=== PATIENT | female | born 1945 | race Caucasian/White ===

== ENCOUNTER 2019-02-22 07:56 | Inpatient (IN) | payer MEDICARE ==
[~2019-02-22] VITALS: Ht 165.1 cm; Wt 79.4 kg
[2019-02-22] MEDS ORDERED: AMLO10TA8 PO (08:47)
[2019-02-22] MEDS ORDERED: POTA10TA6 PO (08:48)
[2019-02-22] MEDS ORDERED: FURO20TA3 PO (08:49)
[2019-02-22] MEDS ORDERED: DOXA2TAB9 PO (08:51)
[2019-02-22] MEDS ORDERED: APIX5TAB4 PO (08:51)
[2019-02-22 08:52] VITALS: BP 143/73
[2019-02-22] MEDS ORDERED: AMLO-150 PO (08:52)
[2019-02-22] MEDS ORDERED: SODIUM CHLORIDE 0.9% 1,000 ML IV SCH (08:55)
[2019-02-22 09:38] LABS: ANION GAP 8 mmol/L (5-15); CALCIUM 9.2 mg/dL (8.5-10.1); CHLORIDE 107 mmol/L (98-107); CREATININE 0.85 mg/dL (0.55-1.02)
[2019-02-22] MEDS ORDERED: ISOPROTERENOL 0.2MG/ML, 5ML ONE (09:48)
[2019-02-22] MEDS ORDERED: MIDAZOLAM 1 MG/ML, 2ML ONE ×2 (09:48→11:09)
[2019-02-22] MEDS ORDERED: LIDOCAINE 1%, 20ML ONE (09:48)
[2019-02-22] MEDS ORDERED: FENTANYL PF 100 MCG/2ML ONE ×2 (09:48→11:09)
[2019-02-22] MEDS ORDERED: MIDAZOLAM 1 MG/ML, 5ML ONE (11:13)
[2019-02-22] MEDS ORDERED: FENTANYL PF 250 MCG/5ML ONE (11:56)
[2019-02-22] MEDS ORDERED: ACETAMINOPHEN 325 MG TABLET PO PRN (12:00)
[2019-02-22] MEDS ORDERED: ZOLPIDEM 5MG TABLET PO PRN (12:00)
[2019-02-22 14:15] VITALS: BP 123/58
[2019-02-22] MEDS: APIXABAN 5 MG TABLET PO SCH ×2 (15:35→21:25)
[2019-02-22 19:14] VITALS: BP 116/67
[2019-02-22 21:24] VITALS: BP 127/73
[2019-02-22] MEDS: DOXAZOSIN 2MG TABLET PO SCH (21:25)
[2019-02-23 01:05] VITALS: BP 128/74
[2019-02-23 07:44] VITALS: BP 143/65
[2019-02-23] MEDS ORDERED: DOXAZOSIN 2MG TABLET PO SCH (09:00)
[2019-02-23] MEDS ORDERED: AMLODIPINE 5 MG TABLET PO SCH (09:00)
[2019-02-23] MEDS: APIXABAN 5 MG TABLET PO SCH ×2 (09:01→20:11)
[2019-02-23] MEDS: AMLODIPINE 10 MG TAB PO SCH (09:01)
[2019-02-23] MEDS: FUROSEMIDE 20 MG TABLET PO SCH (09:01)
[2019-02-23] MEDS: POTASSIUM CHLORIDE 10 MEQ TABLET.ER PO SCH (09:01)
[2019-02-23 14:00] VITALS: BP 137/72
[2019-02-23 18:55] VITALS: BP 148/71
[2019-02-23 20:10] VITALS: BP 132/69
[2019-02-23] MEDS: DOXAZOSIN 2MG TABLET PO SCH (20:10)
[2019-02-24 01:03] VITALS: BP 148/73
[2019-02-24] MEDS: APIXABAN 5 MG TABLET PO SCH ×2 (07:23→09:25)
[2019-02-24] MEDS: AMLODIPINE 10 MG TAB PO SCH (08:15)
[2019-02-24] MEDS: FUROSEMIDE 20 MG TABLET PO SCH (08:16)
[2019-02-24] MEDS: POTASSIUM CHLORIDE 10 MEQ TABLET.ER PO SCH (08:16)
[2019-02-24 08:24] VITALS: BP 162/72
== END 2019-02-24 10:28 | disposition home or self-care (01) | DRG 273 ==
LOC: CACL 07:56 → 5SO 12:32 → OBSVTOIN 19:43 → CACL 19:47 → DCLOUNGE 02-24 10:13
PROVIDERS: ADMIT Internal Medicine Cardiovascular Disease; ATTEND Internal Medicine Cardiovascular Disease
PROC: 02583ZZ Destruction of Conduction Mechanism, Percutaneous Approach (ICD-10-PCS; principal; 2019-02-22)
PROC: 4A023FZ Measurement of Cardiac Rhythm, Percutaneous Approach (ICD-10-PCS; 2019-02-22)
PROC: 4A0234Z Measurement of Cardiac Electrical Activity, Percutaneous Approach (ICD-10-PCS; 2019-02-22)
PROC: 02K83ZZ Map Conduction Mechanism, Percutaneous Approach (ICD-10-PCS; 2019-02-22)
DX: I48.92 Unspecified atrial flutter (principal); I50.33 Acute on chronic diastolic (congestive) heart failure; D68.69 Other thrombophilia; I48.0 Paroxysmal atrial fibrillation; I49.5 Sick sinus syndrome; E66.9 Obesity, unspecified; Z68.29 Body mass index [BMI] 29.0-29.9, adult; I10 Essential (primary) hypertension; I45.9 Conduction disorder, unspecified; Z79.899 Other long term (current) drug therapy; I11.0 Hypertensive heart disease with heart failure
CPT/HCPCS: 36415; 80048; 93005; 93306; 93613; 93621; 93653; 99156; 99157; C1731; C1732; C1766; C1894; G0378; J2250; J3010; C1730

== ENCOUNTER 2019-10-24 13:56 | Emergency (ER) | payer MEDICARE ==
[~2019-10-24] VITALS: Ht 165.1 cm; Wt 80.0 kg
[~2019-10-24 13:56] MED LIST: AMLO-150 PO; AMLO10TA8 PO; APIX5TAB4 PO; DOXA2TAB9 PO; FURO20TA3 PO; POTA10TA6 PO
--- NOTE | 2019-10-24 14:28 | NUR ---
PT STATES "I HAD AN OCCULAR STROKE ABOUT 6M AGO. TODAY MY DOCTOR FOUND A BLOOD CLOT IN THE VEIN BEHIND MY RIGHT EYE". SYMPTOMS FOR APPROX. 2-3 WEEKS. PT IS ON ELIQUIS.
[2019-10-24] MEDS ORDERED: DIAZEPAM 5 MG TABLET ONE (14:52)
[2019-10-24] MEDS ORDERED: DIAZEPAM 5 MG TABLET PO ONE (15:00)
--- NOTE | 2019-10-24 15:06 | NUR ---
ULTRASOUND AT BEDSIDE. IV STARTED FOR TESTING PURPOSES. PT DENIES ANY NEEDS OR CONCERNS AT THIS TIME. CALL LIGHT IN REACH. U/S EXAM AT THIS TIME.
[2019-10-24 15:12] LABS: BASOPHILS # (AUTO) 0.03 x10^3/uL (0-0.1); BASOPHILS % (AUTO) 0 % (0-1); EOSINOPHILS % (AUTO) 2 % (1-7); LYMPHOCYTES # (AUTO) 1.23 x10^3/uL (1-3.4); LYMPHOCYTES % (AUTO) 18 % (22-44); MD NO; MEAN CORPUSCULAR HEMOGLOBIN 33.3 pg (27.0-34.8); MEAN CORPUSCULAR HGB CONC 34.5 g/dL (32.4-35.8); MEAN CORPUSCULAR VOLUME 96.5 fL (80-100); MEAN PLATELET VOLUME 7.6 fL (7.4-10.4); MONOCYTES # (AUTO) 0.38 x10^3/uL (0.2-0.8); MONOCYTES % (AUTO) 6 % (2-9); NEUTROPHILS # (AUTO) 4.94 x10^3/uL (1.8-6.8); NEUTROPHILS % (AUTO) 74 % (42-75); PLATELET COUNT 266 x10^3/uL (130-400); RED BLOOD COUNT 4.25 x10^6/uL (3.82-5.3); RED CELL DISTRIBUTION WIDTH 13.4 % (9.6-15.2)
[2019-10-24 15:22] LABS: ALBUMIN 4.2 g/dL (3.4-5.0); ANION GAP 8 mmol/L (5-15); CALCIUM 9.2 mg/dL (8.5-10.1); CHLORIDE 104 mmol/L (98-107)
[2019-10-24 15:49] LABS: ALANINE AMINOTRANSFERASE 32 U/L (12-78); ALKALINE PHOSPHATASE 83 U/L (45-117); BILIRUBIN,TOTAL 0.9 mg/dL (0.2-1.0); CREATININE 0.76 mg/dL (0.55-1.02); TOTAL PROTEIN 7.8 g/dL (6.4-8.2)
[2019-10-24 16:36] LABS: HCT (SEDRATE) 41.1 % (34.6-47.8)
[2019-10-24 16:59] VITALS: BP 162/50
--- NOTE | 2019-10-24 17:00 | NUR ---
PT RETURNED FROM MRI. IV SITE CLEANED AND REDRESSED. PT DENIES ANY FURTHER NEEDS OR CONCERNS. CALL LIGHT IN REACH.
--- NOTE | 2019-10-24 17:04 | NUR ---
ERP AT BEDSIDE TO DISCUSS PLAN OF CARE.
[2019-10-24] MEDS ORDERED: ASPIRIN 81 MG TABLET CHEW ONE (18:20)
[2019-10-24] MEDS ORDERED: ASPIRIN 81 MG TABLET EC PO ONE (18:30)
== END 2019-10-24 18:25 | disposition home or self-care (01) ==
LOC: ED 15:57
DX: H34.11 Central retinal artery occlusion, right eye (principal); I66.21 Occlusion and stenosis of right posterior cerebral artery; Z87.891 Personal history of nicotine dependence
CPT/HCPCS: 36415; 70544; 70547; 70551; 80053; 82607; 83516; 85025; 85613; 85651; 85670; 85705; 85732; 86038; 86140; 86147; 86160; 86225; 86235; 86255; 86256; 86376; 86431; 86592; 93005; 93308; 99284